=== PATIENT | female | born 1970 ===

== ENCOUNTER 2024-01-14 14:38 | Inpatient (IN) | payer MEDICARE, OTHER ==
[~2024-01-14] VITALS: Ht 180.3 cm; Wt 103.9 kg
[2024-01-14] MEDS ORDERED: ABILIFY (15:03)
[2024-01-14] MEDS ORDERED: KEPPRA (15:03)
[2024-01-14 15:33] LABS: BASOPHILS % (AUTO) 0.6 % (0.0-2.0); EOSINOPHILS # (AUTO) 0.1 K/uL (0.0-0.7); EOSINOPHILS % (AUTO) 2.5 % (0.0-7.0); HEMATOCRIT 37.5 % (31.2-41.9); HEMOGLOBIN 12.9 g/dL (10.9-14.3); LYMPHOCYTES # (AUTO) 0.9 K/uL (0.8-4.8); LYMPHOCYTES % (AUTO) 18.3 % (20.5-51.5); MEAN CORPUSCULAR HEMOGLOBIN 30.9 uug (24.7-32.8); MEAN CORPUSCULAR HGB CONC 34 g/dL (32.3-35.6); MEAN CORPUSCULAR VOLUME 90.1 fL (75.5-95.3); MONOCYTES # (AUTO) 0.5 K/uL (0.1-1.30); MONOCYTES % (AUTO) 9.9 % (0.0-11.0); NEUTROPHILS # (AUTO) 3.4 K/uL (1.8-8.9); NEUTROPHILS % (AUTO) 68.7 % (38.5-71.5); PLATELET COUNT (AUTO) 187 K/uL (179-408); RED BLOOD CELL COUNT(AUTO) 4.17 MIL/uL (3.63-4.92); RED CELL DISTRIBUTION WIDTH 13.5 % (12.3-17.7)
[2024-01-14 15:47] LABS: DIFFERENTIAL COMMENT 1
[2024-01-14 15:50] LABS: ETHANOL < 3 MG/DL (0-10)
[2024-01-14 15:51] LABS: AMMONIA < 10 umol/L (11-32)
[2024-01-14 15:57] LABS: ALANINE AMINOTRANSFERASE 13 U/L (14-59); ALBUMIN 3.2 g/dL (3.4-5.0); ALKALINE PHOSPHATASE 164 U/L (50-136); ASPARTATE AMINOTRANSFERASE 12 U/L (15-37); BILIRUBIN,DIRECT 0.1 mg/dL (0.0-0.2); BILIRUBIN,TOTAL 0.3 mg/dL (0.2-1.0); CALCIUM 8.7 mg/dL (8.5-10.1); CARBON DIOXIDE 23 mmol/L (21-32); CHLORIDE 107 mmol/L (98-107); CREATININE 0.7 mg/dL (0.6-1.3); GLUCOSE 96 mg/dL (74-106); POTASSIUM 3.9 mmol/L (3.5-5.1); SODIUM SERUM 142 mmol/L (136-145); TOTAL PROTEIN, SERUM 6.5 g/dL (6.4-8.2); UREA NITROGEN, BLOOD 12 mg/dL (7-18)
[2024-01-14 16:05] LABS: ACETAMINOPHEN < 2.0 ug/mL (10-30)
[2024-01-14 16:39] LABS: THYROID STIMULATING HORMONE 1.169 mIU/mL (0.358-3.740)
[2024-01-14 16:41] LABS: *BILIRUBIN,URIN NEGATIVE (NEGATIVE); *BLOOD, URINE NEGATIVE (NEGATIVE); *CLARITY,URINE CLEAR (CLEAR); *COLOR,URINE YELLOW (YELLOW); *KETONES,URINE NEGATIVE (NEGATIVE); *PROTEIN,URINE NEGATIVE (NEGATIVE); *UROBILINOGEN,URINE 0.2 E.U./dl (NORMAL); LEUKOCYTE ESTERASE ,URINE NEGATIVE (NEGATIVE); NITRITE, URINE NEGATIVE (NEGATIVE); UGLUCOSE NEGATIVE (NEGATIVE)
[2024-01-14 16:50] LABS: *AMPHETAMINE, URINE NEGATIVE (NEGATIVE); *BARBITURATE, URINE NEGATIVE (NEGATIVE); *BENZODIAZEPINE, URINE NEGATIVE (NEGATIVE); *CANNABINOID, URINE NEGATIVE (NEGATIVE); *COCCAINE, URINE NEGATIVE (NEGATIVE); *OPIATE, URINE NEGATIVE (NEGATIVE); *PHENCYCLIDINE SCREEN,URINE NEGATIVE (NEGATIVE)
[2024-01-14 16:51] LABS: FENTANYL, URINE NEGATIVE (NEGATIVE)
[2024-01-14 21:10] VITALS: BP 137/78; TEMP 97.7; O2SAT 99
[2024-01-14] MEDS ORDERED: CLONAZEPAM 0.5 MG TABLET PO PRN (21:15)
[2024-01-14] MEDS ORDERED: TEMAZEPAM 7.5 MG CAPSULE PO PRN (21:15)
[2024-01-14] MEDS ORDERED: MAGNESIUM HYDROXIDE 30 ML LIQUID UDC PO PRN (21:15)
[2024-01-14] MEDS ORDERED: MAG HYDROX/AL HYDROX/SIMETH 30 ML LIQUID UDC PO PRN (21:15)
[2024-01-14] MEDS ORDERED: APIX5TAB PO (22:52)
[2024-01-15 07:53] VITALS: BP 111/71; TEMP 98.2; O2SAT 99
[2024-01-15] MEDS: ESCITALOPRAM OXALATE 10 MG TABLET PO SCH (09:42)
[2024-01-15] MEDS: ARIPIPRAZOLE 5 MG TABLET PO SCH (09:42)
[2024-01-15] MEDS ORDERED: LEVE500T9 PO (11:11)
[2024-01-15] MEDS ORDERED: TENO300T5 PO (11:16)
[2024-01-15] MEDS ORDERED: EMTR200C4 PO (11:16)
[2024-01-15 15:11] VITALS: BP 116/70; TEMP 98; O2SAT 99
[2024-01-15] MEDS ORDERED: PRAZ2CAP2 PO (15:18)
[2024-01-15 20:00] VITALS: BP 134/87; TEMP 98.1; O2SAT 97
[2024-01-16 07:47] VITALS: BP 116/52; TEMP 98; O2SAT 99
[2024-01-16] MEDS: APIXABAN 5 MG TABLET PO SCH (14:30)
[2024-01-16] MEDS: levETIRAcetam 500 MG TABLET PO SCH (14:31)
[2024-01-16] MEDS ORDERED: TENOFOVIR DISOPROXIL FUMARATE 300 MG TABLET PO SCH (14:45)
[2024-01-16] MEDS ORDERED: EMTRICITABINE 200 MG CAPSULE PO SCH (14:45)
[2024-01-16 16:20] VITALS: BP 101/65; TEMP 98; O2SAT 98
[2024-01-16] MEDS: TENOFOVIR PO SCH (16:38)
[2024-01-16] MEDS: EMTRICITABINE PO SCH (16:38)
[2024-01-16 21:20] VITALS: BP 117/71; TEMP 98; O2SAT 98
[2024-01-17 08:07] VITALS: BP 121/59; TEMP 98.3; O2SAT 98
[2024-01-17 16:21] VITALS: BP 105/66; TEMP 98.1; O2SAT 97
[2024-01-17 19:57] VITALS: BP 121/69; TEMP 98.3; O2SAT 97
[2024-01-18 07:56] VITALS: BP 97/68; TEMP 98.2; O2SAT 99
[2024-01-18] MEDS: ESCITALOPRAM OXALATE 10 MG TABLET PO SCH (09:08)
[2024-01-18] MEDS: CLONAZEPAM 1 MG TABLET PO PRN (09:40)
[2024-01-18 16:39] VITALS: BP 126/69; TEMP 98.1; O2SAT 98
[2024-01-18 20:03] VITALS: BP 120/67; TEMP 98.3; O2SAT 96
[2024-01-19 07:56] VITALS: BP 116/60; TEMP 97.6; O2SAT 99
[2024-01-19 15:24] VITALS: BP 104/79; TEMP 98; O2SAT 99
[2024-01-19 20:07] VITALS: BP 116/66; TEMP 98.2; O2SAT 98
[2024-01-20 07:55] VITALS: BP 104/66; TEMP 98; O2SAT 98
[2024-01-20 15:08] VITALS: BP 118/74; TEMP 98; O2SAT 96
[2024-01-20 20:00] VITALS: BP 120/64; TEMP 98.2; O2SAT 96
[2024-01-21 07:51] VITALS: BP 130/87; TEMP 98; O2SAT 99
[2024-01-21 15:14] VITALS: BP 104/64; TEMP 98; O2SAT 98
[2024-01-21 20:00] VITALS: BP 92/52; TEMP 97.6; O2SAT 96
[2024-01-22 08:08] VITALS: BP 123/70; TEMP 98; O2SAT 99
[2024-01-22 15:38] VITALS: BP 107/67; TEMP 98; O2SAT 99
[2024-01-22 19:45] VITALS: BP 119/70; TEMP 97.8; O2SAT 98
[2024-01-23 08:08] VITALS: BP 110/68; TEMP 98.3; O2SAT 98
[2024-01-23 16:14] VITALS: BP 111/78; TEMP 98; O2SAT 99
[2024-01-23 19:37] VITALS: BP 115/68; TEMP 98; O2SAT 99
[2024-01-24 08:05] VITALS: BP 119/83; TEMP 98.1; O2SAT 100
[2024-01-24 16:39] VITALS: BP 119/76; TEMP 98; O2SAT 99
[2024-01-24 20:18] VITALS: BP 108/70; TEMP 97.8; O2SAT 99
[2024-01-25 07:48] VITALS: BP 115/69; TEMP 98.2; O2SAT 99
[2024-01-25 16:23] VITALS: BP 106/62; TEMP 98.1; O2SAT 99
[2024-01-25 19:59] VITALS: BP 112/66; TEMP 98.1; O2SAT 98
[2024-01-26 08:37] VITALS: BP 124/80; TEMP 98.2; O2SAT 99
[2024-01-26 15:22] VITALS: BP 112/62; TEMP 98.2; O2SAT 99
[2024-01-26 19:40] VITALS: BP 122/66; TEMP 98.1
[2024-01-27 07:41] VITALS: BP 110/72; TEMP 98.2; O2SAT 98
== END 2024-01-27 12:15 | DRG 885 ==
LOC: ER 14:43 → GPS 20:54
PROVIDERS: ADMIT Psychiatry & Neurology Psychiatry; ATTEND Nurse Practitioner Acute Care
DX: F25.1 Schizoaffective disorder, depressive type (principal); R45.851 Suicidal ideations; Z59.02 Unsheltered homelessness; R45.850 Homicidal ideations; G40.909 Epilepsy, unspecified, not intractable, without status epilepticus; S06.9XAS Unspecified intracranial injury with loss of consciousness status unknown, sequela; X58.XXXS Exposure to other specified factors, sequela; Z79.899 Other long term (current) drug therapy; Z86.711 Personal history of pulmonary embolism; Z79.01 Long term (current) use of anticoagulants; F43.10 Post-traumatic stress disorder, unspecified; G89.21 Chronic pain due to trauma; R07.81 Pleurodynia; I51.7 Cardiomegaly
CPT/HCPCS: 36415; 70450; 71045; 84443; 84484; 85025; 85730; 93005; G0480